=== PATIENT | male | born 1945 | race Caucasian/White ===

== ENCOUNTER 2016-12-20 14:38 | Emergency (ER) | payer OTHER ==
[2016-12-20 18:30] VITALS: BP 182/84
== END 2016-12-20 18:30 | disposition home or self-care (01) ==
LOC: ED 14:38
DX: R33.9 Retention of urine, unspecified (principal); Z85.46 Personal history of malignant neoplasm of prostate; I10 Essential (primary) hypertension; E11.9 Type 2 diabetes mellitus without complications